=== PATIENT | female | born 1945 | race Caucasian/White ===

== ENCOUNTER 2021-02-23 10:05 | Outpatient (CLI) | payer OTHER | END 2021-02-23 10:12 | disposition home or self-care (01) | LOC: RAD 10:05 | PROVIDERS: ATTEND Orthopaedic Surgery | DX: R07.89 Other chest pain (principal); Z76.89 Persons encountering health services in other specified circumstances ==

== ENCOUNTER 2022-03-03 15:28 | Outpatient (CLI) | payer OTHER | END 2022-03-03 16:15 | disposition home or self-care (01) | LOC: ASH CLINIC 15:28 | PROVIDERS: ATTEND Internal Medicine Infectious Disease | DX: U07.1 COVID-19 (principal) ==